=== PATIENT | male | born 2000 | race Two or more races ===

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

== ENCOUNTER 2023-02-15 22:21 | Emergency (ER) | payer OTHER ==
[~2023-02-15] VITALS: Ht 175.3 cm; Wt 108.9 kg
[~2023-02-15 22:21] MED LIST changes: +CYCL5TAB PO; +LIDO30AD10 TP; +NAPR-1164 PO
[2023-02-16 05:20] VITALS: BP 136/70; TEMP 97.9; O2SAT 97
== END 2023-02-16 05:21 | disposition home or self-care (01) ==
LOC: ER 22:24
DX: S00.03XA Contusion of scalp, initial encounter (principal); F10.129 Alcohol abuse with intoxication, unspecified; F17.210 Nicotine dependence, cigarettes, uncomplicated; W18.30XA Fall on same level, unspecified, initial encounter; Y93.89 Activity, other specified; Y92.89 Other specified places as the place of occurrence of the external cause; Y99.8 Other external cause status; Y90.9 Presence of alcohol in blood, level not specified
CPT/HCPCS: 70450-TC; 72125-TC